=== PATIENT | male | born 1985 ===

== ENCOUNTER 2021-03-25 12:16 | Emergency (ER) | payer SELFPAY ==
[~2021-03-25] VITALS: Ht 172.7 cm; Wt 68.0 kg
--- NOTE | 2021-03-25 12:29 | NUR ---
BIB [facility] accompanied by PD. Placed on a 5150 hold at this time.
[2021-03-25] MEDS ORDERED: OLANZAPINE 5 MG TABLET PO ONE ×2 (12:45→21:30)
--- NOTE | 2021-03-25 12:50 | NUR ---
Spoke with Don from Poison Control. Recommendations noted and will inform
[2021-03-25] MEDS ORDERED: OLANZAPINE 5 MG TABLET ONE ×2 (12:55→22:59)
[2021-03-25 12:56] LABS: HEMATOCRIT 44.7 % (36.7-47.1); MEAN CORPUSCULAR HEMOGLOBIN 30.2 uug (23.8-33.4); MEAN CORPUSCULAR VOLUME 89.7 fL (73.0-96.2); PLATELET COUNT (AUTO) 327 K/uL (152-348)
[2021-03-25 13:00] LABS: CARBON DIOXIDE 22 mmol/L (21-32); CHLORIDE 100 mmol/L (98-107); CREATININE 1.1 mg/dL (0.6-1.3); GLUCOSE 124 mg/dL (74-106); POTASSIUM 3.6 mmol/L (3.5-5.1); UREA NITROGEN, BLOOD 21 mg/dL (7-18)
[2021-03-25 13:06] LABS: ALKALINE PHOSPHATASE 82 U/L (50-136); ASPARTATE AMINOTRANSFERASE 30 U/L (15-37); BILIRUBIN,DIRECT 0.1 mg/dL (0.0-0.2); BILIRUBIN,TOTAL 0.6 mg/dL (0.2-1.0); TOTAL PROTEIN, SERUM 8.3 g/dL (6.4-8.2)
[2021-03-25 13:10] LABS: ETHANOL < 3 MG/DL (0-0)
[2021-03-25 13:16] LABS: ALANINE AMINOTRANSFERASE 7 U/L (16-63)
[2021-03-25 13:17] LABS: ACETAMINOPHEN < 2.0 ug/mL (10-30)
--- NOTE | 2021-03-25 13:20 | NUR ---
Spoke with Regla, pharmacist from Poison control. Given specifics of material patient ingested. Recommendations noted and will inform MD.
--- NOTE | 2021-03-25 14:59 | NUR ---
Removed restraints at this time. Patient states that he "feels okay, better mentally." Notified MD that patient wishes to speak with him as well.
--- NOTE | 2021-03-25 15:00 | NUR ---
Patient given food as requested.
--- NOTE | 2021-03-25 17:45 | NUR ---
Spoke with Laz from Poison control patient condition updates. Recommendations noted and will continue to monitor patient.
--- NOTE | 2021-03-25 19:11 | NUR ---
Report given to Brock CASTELLANOS
--- NOTE | 2021-03-25 21:38 | NUR ---
Yanira CASTELLANOS evaluated patient, stated that she would not able to lift any holds at this time. She states to have the patient reevaluated in the morning after receiving zyprexa.
--- NOTE | 2021-03-25 21:38 | NUR ---
Apoorva to in [facility] - 03/26/21 at 0050 by RASHID Yanira CASTELLANOS evaluated patient, stated that she would not able to lift any holds at this time. Patient will be considered for transfer for appropriate care.
--- NOTE | 2021-03-26 01:04 | NUR ---
Patient is resting comfortably in bed with eyes closed, no acute distress noted.
--- NOTE | 2021-03-26 03:51 | NUR ---
Patient is resting comfortably in bed with eyes closed, no acute distress noted.
[2021-03-26 05:08] LABS: *BILIRUBIN,URIN NEGATIVE (NEGATIVE); *BLOOD, URINE NEGATIVE (NEGATIVE); *CLARITY,URINE CLEAR (CLEAR); *COLOR,URINE YELLOW (YELLOW); *KETONES,URINE NEGATIVE (NEGATIVE); *UROBILINOGEN,URINE 0.2 E.U./dl (NORMAL); LEUKOCYTE ESTERASE ,URINE NEGATIVE (NEGATIVE); NITRITE, URINE NEGATIVE (NEGATIVE); UGLUCOSE NEGATIVE (NEGATIVE)
--- NOTE | 2021-03-26 05:38 | NUR ---
Patient is resting comfortably in bed with eyes closed, no acute distress noted.
[2021-03-26 06:06] LABS: *AMPHETAMINE, URINE POSITIVE (NEGATIVE); *CANNABINOID, URINE NEGATIVE (NEGATIVE); *COCCAINE, URINE NEGATIVE (NEGATIVE); *OPIATE, URINE NEGATIVE (NEGATIVE); *PHENCYCLIDINE SCREEN,URINE NEGATIVE (NEGATIVE)
--- NOTE | 2021-03-26 06:06 | NUR ---
Called Crisis team and left voicemail for Neelam.
--- NOTE | 2021-03-26 07:04 | NUR ---
Spoke with crisis presentation team member Neelam, she states her ETA will be one hour to re-evaluate the patient.
--- NOTE | 2021-03-26 07:11 | NUR ---
Hands-off report given to JASMIN Pretty.
--- NOTE | 2021-03-26 08:23 | NUR ---
PET embryology professor beside. Pt denies SI, recently released from [facility]. States he had used Meth. PET will release him from 5150 hold.
--- NOTE | 2021-03-26 08:35 | NUR ---
Gave pt breakfast tray.
== END 2021-03-26 10:40 | disposition home or self-care (01) ==
LOC: ER 12:16
DX: T65.892A Toxic effect of other specified substances, intentional self-harm, initial encounter (principal); Y92.512 Supermarket, store or market as the place of occurrence of the external cause; E87.1 Hypo-osmolality and hyponatremia; F15.259 Other stimulant dependence with stimulant-induced psychotic disorder, unspecified; G47.00 Insomnia, unspecified; Z59.0 Homelessness; Z20.822 Contact with and (suspected) exposure to COVID-19
CPT/HCPCS: 36415; 71045; 83930; 85025; A4663; G0480